=== PATIENT | female | born 1930 | race Caucasian/White ===

== ENCOUNTER 2016-08-27 16:20 | Observation (INO) | payer MEDICARE, BC, OTHER ==
[2016-08-27] MEDS ORDERED: ASPIRIN 81 MG CHEW PO STA (16:37)
--- NOTE | 2016-08-27 16:40 | ED ---
Chest Pain HPI - General Stated Complaint: Cardiac Time Seen by Provider: 08/27/16 16:30 - History of Present Illness Initial Comments: Patient complains of chest pain. She had some nausea but no vomiting. Her symptoms began approximately one and a half hours ago. They came on suddenly. Her symptoms gradually improved. At this time she is symptom-free. She has no belly or back pain. She has no lightheadedness or dizziness. She has no neck pain or stiffness. She has no pain or swelling in the arms or legs. She has no palpitations. The chest pain did not radiate anywhere. There are no exacerbating or relieving factors. She took nitroglycerin and she no longer has pain. - Related Data Home Medications Medication Instructions Recorded Confirmed Aspirin EC [Ecotrin Low Dose] 81 mg PO HS 08/27/16 08/27/16 Atenolol [Tenormin] 25 mg PO DAILY 08/27/16 08/27/16 Calcium Carbonate [Calcium] 600 mg PO DAILY 08/27/16 08/27/16 Diazepam [Valium] 5 mg PO TID PRN 08/27/16 08/27/16 Doxazosin [Cardura] 2 mg PO DAILY 08/27/16 08/27/16 Multivitamins, Thera [Multivitamin] 1 tab PO DAILY 08/27/16 08/27/16 Pravastatin Sodium [Pravachol] 40 mg PO HS 08/27/16 08/27/16 Allergies Allergy/AdvReac Type Severity Reaction Status Date / Time No Known Allergies Allergy Verified 08/27/16 17:21 Review of Systems ROS Statement: Those systems with pertinent positive or pertinent negative responses have been documented in the HPI. ROS Other: All systems not noted in ROS Statement are negative. General Exam General appearance: alert, in no apparent distress Head exam: Present: atraumatic, normocephalic, normal inspection Eye exam: Present: normal appearance, PERRL, EOMI. Absent: scleral icterus, conjunctival injection, periorbital swelling ENT exam: Present: normal exam, mucous membranes moist Neck exam: Present: normal inspection. Absent: tenderness, meningismus, lymphadenopathy Respiratory exam: Present: normal lung sounds bilaterally. Absent: respiratory distress, wheezes, rales, rhonchi, stridor Cardiovascular Exam: Present: regular rate, normal rhythm, normal heart sounds. Absent: systolic murmur, diastolic murmur, rubs, gallop, clicks GI/Abdominal exam: Present: soft, normal bowel sounds. Absent: distended, tenderness, guarding, rebound, rigid Extremities exam: Present: normal inspection, full ROM, normal capillary refill. Absent: tenderness, pedal edema, joint swelling, calf tenderness Back exam: Present: normal inspection Neurological exam: Present: alert, oriented X3, CN II-XII intact Psychiatric exam: Present: normal affect, normal mood Skin exam: Present: warm, dry, intact, normal color. Absent: rash Course Vital Signs 08/27/16 08/27/16 16:33 18:15 Temperature 98.3 F Pulse Rate 63 57 L Respiratory 18 18 Rate Blood Pressure 192/83 163/77 O2 Sat by Pulse 95 97 Oximetry Chest Pain MDM - MDM Patient complains of chest pain. Initial EKG is normal. Troponin is negative. Patient will be admitted to the hospital. Disposition Clinical Impression: Chest pain Disposition: ADMITTED IP TO THIS HOSP Condition: Fair Time of Disposition: 18:32
[2016-08-27 16:53] LABS: Basophils % (A) 0 %; CH 29.1; CHCM 32.2; Eosinophils # (A) 0.2 k/uL (0-0.7); Eosinophils % (A) 2 %; HDW 2.18; HGB 13.7 gm/dL (11.4-16.0); Luc # (Auto) 0.12; Luc % (Auto) 1; Lymphocytes # (A) 1.6 k/uL (1.0-4.8); Lymphocytes % (A) 19 %; MCH 28.9 pg (25.0-35.0); MCHC 31.9 g/dL (31.0-37.0); MCV 90.8 fL (80.0-100.0); Mean Platelet Volume 7.4; Monocytes # (A) 0.4 k/uL (0-1.0); Monocytes % (A) 4 %; Neutrophils # (A) 6.2 k/uL (1.3-7.7); Neutrophils % (A) 74 %; RBC 4.73 m/uL (3.80-5.40); WBC 8.4 k/uL (3.8-10.6); WBC (Perox) 8.77
[2016-08-27 17:06] LABS: ALT 37 U/L (9-52); AST 21 U/L (14-36); Alkaline Phosphatase 55 U/L (38-126); Anion Gap 9 mmol/L; Blood Urea Nitrogen 10 mg/dL (7-17); Calcium 9.4 mg/dL (8.4-10.2); Carbon Dioxide 27 mmol/L (22-30); Chloride 102 mmol/L (98-107); Glucose 92 mg/dL (74-99); Magnesium 1.9 mg/dL (1.6-2.3); Non-African American GFR(MDRD) 59 (>60 ml/min/1.73 sqM); Potassium 4.3 mmol/L (3.5-5.1); Sodium 138 mmol/L (137-145); Total Bilirubin 0.8 mg/dL (0.2-1.3); Total Protein 6.5 g/dL (6.3-8.2)
[2016-08-27 17:10] LABS: INR 1.1 (<1.1); Partial Thromboplastin Time 23.6 sec (22.0-30.0); Prothrombin Time 10.8 sec (9.0-12.0)
--- NOTE | 2016-08-27 18:24 | XR ---
EXAMINATION TYPE: XR chest 2V DATE OF EXAM: 08/27/2016 5:51 PM COMPARISON: NONE HISTORY: Pain and cough TECHNIQUE: Frontal and two lateral views of the chest are obtained. FINDINGS: EKG leads are noted. There is no focal air space opacity, pleural effusion, or pneumothora x seen. The cardiac silhouette size is within normal limits. The osseous structures are intact. IMPRESSION: No acute cardiopulmonary process.
[2016-08-27] MEDS ORDERED: ONDANSETRON 4 MG/2 ML VIAL IVP PRN (18:32)
[2016-08-27] MEDS ORDERED: NALOXONE 0.4 MG/ML 1 ML VIAL IV PRN (18:32)
[2016-08-27] MEDS ORDERED: MORPHINE SULFATE 4 MG/ML SYRINGE IV PRN (18:32)
[2016-08-27 18:52] LABS: Amorphous Sediment,Urine Occasional /hpf; Appearance,Urine Cloudy (Clear); Bilirubin,Urine Negative (Negative); Glucose,Urine (UA) Negative (Negative); Ketones,Urine 1+ (Negative); Leukocyte Esterase,Urine Negative (Negative); Mucus,Urine Rare /hpf; Nitrite,Urine Negative (Negative); Particle Count 4633; Protein,Urine Trace (Negative); RBC,Urine 1 /hpf (0-5); Specific Gravity,Urine 1.012 (1.001-1.035); Squamous Epithelial Cell,Urine 7 /hpf (0-4); UA Billing (MACRO vs. MICRO) MICRO; Urobilinogen,Urine <2.0 mg/dL (<2.0); WBC,Urine 12 /hpf (0-5)
[2016-08-27] MEDS ORDERED: PRAVASTATIN SODIUM 40 MG TAB PO SCH (21:00)
[2016-08-27 22:34] VITALS: BMI 27.2
[2016-08-27] MEDS: FAMOTIDINE 20 MG TAB PO SCH (22:46)
[2016-08-27 23:01] VITALS: RESP 16
[2016-08-28] MEDS ORDERED: ATENOLOL 25 MG TAB PO STA (03:59)
[2016-08-28] MEDS ORDERED: CALCIUM CARBONATE 500 MG CHEWABLE PO SCH (09:00)
[2016-08-28] MEDS ORDERED: ATENOLOL 25 MG TAB PO SCH (09:00)
[2016-08-28] MEDS ORDERED: REGADENOSON 0.4 MG/5 ML SYRINGE IV ONE (09:55)
[2016-08-28] MEDS ORDERED: AMINOPHYLLINE 500 MG/20 ML VIAL IV PRN (09:55)
--- NOTE | 2016-08-28 09:55 | P.CRDCN ---
History of Present Illness Consult date: 08/28/16 Chief complaint: Chest pain History of present illness: This is a pleasant 85-year-old female patient who is in great shape for her age with a past medical history significant for hypertension and significant history of smoking presented to the emergency room complaining of chest discomfort. The patient was in her usual state of health when she was doing shopping with her daughter yesterday and came back home and experienced 2 episodes of chest discomfort at home. The second episodes requires 2 nitroglycerin sublingual. The EKG showed sinus rhythm with RBBB. The cardiac enzymes came in to be unremarkable. I am going to schedule the patient will undergo a stress test to rule out any severe underlying CAD. Past Medical History Past Medical History: Coronary Artery Disease (CAD), COPD, Hypertension Additional Past Medical History / Comment(s): restless leg syndrome History of Any Multi-Drug Resistant Organisms: None Reported Past Surgical History: Cholecystectomy, Hysterectomy Past Anesthesia/Blood Transfusion Reactions: No Reported Reaction Past Psychological History: No Psychological Hx Reported Smoking Status: Current every day smoker Past Alcohol Use History: None Reported Past Drug Use History: None Reported - Past Family History Mother History Unknown: Yes Father Family Medical History: COPD, Hyperlipidemia, Hypertension, Myocardial Infarction ([place]) Medications and Allergies Home Medications Medication Instructions Recorded Confirmed Type Aspirin EC [Ecotrin Low Dose] 81 mg PO HS 08/27/16 08/27/16 History Atenolol [Tenormin] 25 mg PO DAILY 08/27/16 08/27/16 History Calcium Carbonate [Calcium] 600 mg PO DAILY 08/27/16 08/27/16 History Diazepam [Valium] 5 mg PO TID PRN 08/27/16 08/27/16 History Doxazosin [Cardura] 2 mg PO DAILY 08/27/16 08/27/16 History Multivitamins, Thera [Multivitamin] 1 tab PO DAILY 08/27/16 08/27/16 History Pravastatin Sodium [Pravachol] 40 mg PO HS 08/27/16 08/27/16 History Allergies Allergy/AdvReac Type Severity Reaction Status Date / Time No Known Allergies Allergy Verified 08/27/16 22:23 Physical Exam Vitals: Vital Signs Temp Pulse Pulse Resp BP BP BP 08/28/16 07:52 98.3 F 57 L 16 125/61 08/28/16 03:47 98.1 F 66 16 195/84 08/28/16 03:43 16 08/27/16 23:25 16 08/27/16 22:30 98.1 F 64 16 186/92 08/27/16 21:00 60 20 161/67 08/27/16 20:00 98 F 64 18 164/66 08/27/16 19:00 97.7 F 56 L 20 149/67 Pulse Ox 08/28/16 07:52 94 L 08/28/16 03:47 91 L 08/28/16 03:43 08/27/16 23:25 08/27/16 22:30 91 L 08/27/16 21:00 97 08/27/16 20:00 98 08/27/16 19:00 97 Intake and Output 08/27/16 08/28/16 08/28/16 22:59 06:59 14:59 Other: # Voids 1 Weight 74.3 kg - Constitutional General appearance: no acute distress - Respiratory Respiratory: bilateral: CTA - Cardiovascular Rhythm: regular Heart sounds: normal: S1, S2 Results 08/27/16 16:40 08/27/16 16:40 Cardiac Enzymes 08/27/16 08/28/16 Range/Units 22:17 03:51 Troponin I <0.012 <0.012 (0.000-0.034) ng/mL Current Medications Generic Name Dose Route Start Last Admin Trade Name Freq PRN Reason Stop Dose Admin Aspirin 81 mg 08/28/16 21:00 Aspirin PO HS [facility] Atenolol 25 mg 08/28/16 09:00 Tenormin PO DAILY [facility] Calcium Carbonate/Glycine 500 mg 08/28/16 09:00 Tums PO DAILY [facility] Famotidine 20 mg 08/27/16 21:00 08/27/16 22:46 Pepcid PO 20 mg BID [facility] Administration Morphine Sulfate 4 mg 08/27/16 18:32 Morphine Sulfate (Inj) IV Q4HR PRN Severe Pain Naloxone HCl 0.2 mg 08/27/16 18:32 Narcan IV Q2M PRN Opioid Reversal Ondansetron HCl 4 mg 08/27/16 18:32 Zofran IVP Q8HR PRN Nausea And Vomiting Pravastatin Sodium 40 mg 08/27/16 21:00 08/27/16 22:46 Pravachol PO 40 mg HS JANET Administration Intake and Output 08/27/16 08/28/16 08/28/16 22:59 06:59 14:59 Other: # Voids 1 Weight 74.3 kg Assessment and Plan Plan: Assessment # 2 episodes of chest discomfort # significant history of smoking Plan #1 proceeding with a stress test
[2016-08-28 11:56] VITALS: TEMP 98.2
[2016-08-28] MEDS: FAMOTIDINE 20 MG TAB PO SCH (13:22)
--- NOTE | 2016-08-28 13:43 | EST ---
DATE OF SERVICE: 08/28/2016 AGE: 85Y SEX: F HT: 65" WT: 163 lbs. Protocol Doroteo: Other: Lexiscan Cardiolite Stage: Dur. of Exercise: *Heart Rate Blood Pressure *Rest: 49 Rest: 184/65 * *Max. Achieved: 66 Maximum BP: 184/65 85% PMHR: 114 100% PMHR: 134 *METS: INDICATIONS: Chest pain. MEDICATIONS: CLINICAL INFORMATION: Chest pain, shortness of breath, history of smoking 1 pack of cigarettes a day for 70 years. Resting ECG shows sinus rhythm, rate of 49 beats per minute with frequent PACs and complete right bundle branch block with secondary ST-T wave changes. Utilizing a standard Lexiscan protocol, Lexiscan was given IV push followed by serial EKGs without any chest pain or pressure or ST segment deviations indicative of ischemia in any of the monitoring 12 leads. The patient tolerated the procedure very well. IMPRESSION: 1. Baseline EKG shows complete right bundle branch block with ST-T wave changes. 2. Negative Lexiscan Cardiolite study. 3. Nuclear scintigrams to follow from radiology department.
--- NOTE | 2016-08-28 15:17 | NM ---
EXAMINATION TYPE: NM stress lexiscan cardiolite DATE OF EXAM: 08/28/2016 3:09 PM COMPARISON: NONE HISTORY: Chest pain TECHNIQUE: After the intravenous administration of 10.89 mCi Tc 99m Sestamibi - Cardiolite resting S PECT images acquired 42 minutes post injection. The patient received 0.4mg Lexiscan, 27.5 mCi Tc 99m Sestamibi - Stress images obtained 110 minutes p ost injection FINDINGS: Review of stress and rest SPECT images demonstrates small area of fixed perfusion involving the cardi ac apex. No stress-induced ischemia identified. Gated analysis shows normal wall motion with an estim ated left ventricular ejection fraction of 68 %. IMPRESSION: No scintigraphic evidence for reversible ischemia.
[2016-08-28 15:58] VITALS: BP 170/65; PULSE 48
--- NOTE | 2016-08-28 18:10 | HP ---
DATE OF ADMISSION: 08/27/2016 Chief complaint of chest pain. HISTORY OF PRESENT ILLNESS: Ms. Rubi is an 85-year-old female with a known history of hypertension and nicotine addiction, active smoking, came to the hospital with complaints of chest discomfort mainly in the mid sternal region, no associated nausea or vomiting. Patient felt slightly short of breath. No headache or dizziness, lightheadedness. Patient was at home when she had this chest pain. Apparently the patient was in her usual state of health and when she was doing shopping with her daughter yesterday and came back home and experienced two episodes of chest discomfort as above. For the second episode of chest pain, she has to take nitroglycerin which relieved her symptoms and she came to the hospital. By the time she came to the ER patient is chest pain free. Currently denied any complaints of chest pain now. Cardiology has seen the patient and her EKG showed sinus rhythm with right bundle branch block and cardiac enzymes have been negative x3 and cardiology is planning for stress test today. Otherwise, patient denied recent illnesses or sick contacts at home. No recent travel. REVIEW OF SYSTEMS: CONSTITUTIONAL: No fever. No chills. No weakness, malaise. RESPIRATORY: No cough. No sputum production. CARDIOVASCULAR: No chest pain or short of breath. ABDOMEN: No nausea, vomiting or abdominal pain. GENITOURINARY: Negative. ENDOCRINE: Negative. PSYCHIATRIC: Negative. SKIN: Negative. All other 14 point review of systems negative except as above. PAST MEDICAL HISTORY: Hypertension, nicotine addiction and COPD, restless leg syndrome. PAST SURGICAL HISTORY: Cholecystectomy, hysterectomy. No psychosocial history. SOCIAL HISTORY: Patient is currently an everyday smoker; smokes about a pack a day. Denied any alcohol use. Denied any drugs or IVDU. FAMILY HISTORY: Father has COPD, hypertension, hyperlipidemia, and myocardial infarction. Home medication include: 1. Aspirin. 2. Atenolol. 3. Calcium. 4. Valium. 5. Doxazosin. 6. Multivitamins. 7. Pravastatin. No known drug allergies. PHYSICAL EXAMINATION: An 85-year-old female, lying in the bed. Awake, alert, oriented, x3. Appears to be in no apparent distress. VITALS: Blood pressure is 164/66, pulse is 64, respiration 18, temperature afebrile, pulse ox 98% on 2 L nasal cannula. HEENT: Atraumatic, normocephalic. Neck is supple. No JVD. CVS: S1, S2 heard. No murmurs, no gallop, no rub. LUNGS: Bilateral air entry is present. No wheezing. No crackles. Nonlabored breathing. ABDOMEN: Soft, nontender. Bowel sounds are present. CENTRAL NERVOUS SYSTEM: Awake, alert and oriented x3. No focal neurologic deficits. Cranial nerves grossly intact. EXTREMITIES: No edema. Pulses palpable bilaterally. No clubbing or cyanosis. PSYCHIATRIC: Cooperative. Nonsuicidal. LABORATORY DATA: WBC 8.4, hemoglobin 13.7, platelets 140, INR 1.1. Sodium 138, potassium 4.8, chloride 102, bicarb is 27. BUN 10, creatinine 0.91. Liver enzymes within normal limits. Troponin x 3 negative. NT-proBNP is 283. Lipase 96. UA is cloudy. 12 WBC's and 7 squamous epithelial cells with hyaline casts and urine mucous. CHEST X-RAY: No acute cardiopulmonary process. EKG showed sinus rhythm with right bundle branch block. IMPRESSION: 1. Atypical chest pain/( ) shortness of breath and chest pain rule out acute coronary syndrome. 2. Nicotine addiction. 3. Hypertension. 4. Chronic obstructive pulmonary disease, stable. 5. Restless leg syndrome. 6. History of coronary artery disease, never had any cath in the past. 7. Deep venous thrombosis prophylaxis. DISCUSSION AND PLAN: An 85 -year-old female admitted to the hospital with chest pain, currently ( ) serial EKGs and troponins are negative. Continue the current management and blood pressure medications and Cardiology recommending Lexiscan stress test to be done today. Otherwise we will continue the current management and further recommendations based on the clinical course.
[2016-08-28] MEDS ORDERED: ASPIRIN 81 MG CHEW PO SCH (21:00)
[2016-08-29] MEDS ORDERED: FAMOTIDINE 20 MG TAB PO SCH (09:00)
--- NOTE | 2016-08-29 13:42 | DS ---
DATE OF ADMISSION: 08/27/2016 DATE OF DISCHARGE: 08/28/2016 Cardiology consultation and Lexiscan stress test. DISCHARGE DIAGNOSES: 1. Atypical chest pain, ruled out acute coronary syndrome. Lexiscan stress test negative. 2. Hypertension, uncontrolled, controlled at this time. 3. Restless leg syndrome. 4. Chronic obstructive pulmonary disease. 5. Nicotine addiction. HOSPITAL COURSE: Ms. Rubi is an 85-year-old female with known history of hypertension and nicotine addiction admitted to the hospital with chest pain and workup included serial EKGs and troponins are negative. The patient underwent Lexiscan stress test showed no scintigraphic evidence of reversible ischemia. Otherwise currently patient is chest pain free. Serial EKGs and troponins are negative. Blood pressure is well controlled at this time and the patient will be continued on current management and follow with the primary care physician in 1 to 3 days. DISCHARGE PHYSICAL EXAMINATION; An 85-year-old female, lying in bed comfortably, awake, alert, oriented x3. Appears to be in no apparent distress VITALS: Blood pressure is 140/52, pulse is 54, respirations 16, temperature afebrile, pulse ox 95% on room air. HEENT: Atraumatic, normocephalic. Neck is supple. No JVD. CVS EXAM: S1, S2 heard. LUNGS: Bilateral air entry is present. No wheeze or crackles. ABDOMEN: Soft, nontender. Bowel sounds are present. Laboratory data reviewed. Discharge medications include: 1. Aspirin 81 mg p.o. at bedtime. 2. Atenolol 25 mg p.o. daily. 3. Calcium carbonate 600 mg p.o. daily. 4. Diazepam 5 mg p.o. t.i.d. p.r.n. 5. Doxazosin 2 mg p.o. daily. 6. Multivitamins 1 tablet p.o. daily. 7. Pravastatin 40 mg p.o. at bedtime. Patient will be discharged home and follow with Dr. Uriostegui as outpatient. Home with self-care and activity as tolerated and heart healthy diet.
== END 2016-08-28 17:15 | disposition home or self-care (01) ==
LOC: EC 16:20 → 3OBS 18:32
PROVIDERS: ADMIT Hospitalist; ATTEND Hospitalist
DX: R07.89 Other chest pain (principal); I10 Essential (primary) hypertension; G25.81 Restless legs syndrome; J44.9 Chronic obstructive pulmonary disease, unspecified; F17.200 Nicotine dependence, unspecified, uncomplicated; I45.10 Unspecified right bundle-branch block; I25.10 Atherosclerotic heart disease of native coronary artery without angina pectoris; Z79.82 Long term (current) use of aspirin; Z79.899 Other long term (current) drug therapy; Z82.49 Family history of ischemic heart disease and other diseases of the circulatory system; Z82.5 Family history of asthma and other chronic lower respiratory diseases
CPT/HCPCS: 99285 ×2; 36415; 93005; 93017; 83880; 80053; 83690; 83735; 84484 ×2; 85025; 85610; 85730; 81001; 71020; 78452; G0378 ×2; A9500; J2785

== ENCOUNTER 2016-11-17 19:26 | Inpatient (IN) | payer BC, MEDICARE, OTHER ==
[2016-11-17 22:29] LABS: Glucose,Whole Blood 115 mg/dL (75-99)
[2016-11-18] MEDS: DIAZEPAM 5 MG TAB PO PRN ×3 (02:17→20:41)
[2016-11-18] MEDS: IBUPROFEN 400 MG TAB PO PRN (05:38)
[2016-11-18 07:23] LABS: Basophils % (A) 0 %; CH 28.7; Eosinophils # (A) 0.1 k/uL (0-0.7); Eosinophils % (A) 1 %; HGB 12.8 gm/dL (11.4-16.0); Luc # (Auto) 0.16; Luc % (Auto) 2; Lymphocytes # (A) 1.1 k/uL (1.0-4.8); Lymphocytes % (A) 13 %; MCH 30.2 pg (25.0-35.0); MCHC 34.6 g/dL (31.0-37.0); MCV 87.3 fL (80.0-100.0); Mean Platelet Volume 7.3; Monocytes # (A) 0.6 k/uL (0-1.0); Monocytes % (A) 6 %; Neutrophils # (A) 6.7 k/uL (1.3-7.7); Neutrophils % (A) 77 %; RBC 4.24 m/uL (3.80-5.40); RDW 13.3 % (11.5-15.5); WBC 8.7 k/uL (3.8-10.6)
[2016-11-18 07:42] LABS: ALT 25 U/L (9-52); AST 23 U/L (14-36); Alkaline Phosphatase 47 U/L (38-126); Anion Gap 6 mmol/L; Blood Urea Nitrogen 11 mg/dL (7-17); Calcium 8.9 mg/dL (8.4-10.2); Carbon Dioxide 27 mmol/L (22-30); Chloride 95 mmol/L (98-107); Glucose 85 mg/dL (74-99); Non-African American GFR(MDRD) >60 (>60 ml/min/1.73 sqM); Potassium 4.1 mmol/L (3.5-5.1); Sodium 128 mmol/L (137-145); Total Bilirubin 0.7 mg/dL (0.2-1.3); Total Protein 5.7 g/dL (6.3-8.2)
[2016-11-18] MEDS ORDERED: SYMBICORT 160-4.5 MCG INHALER INHALATION SCH (09:00)
[2016-11-18] MEDS ORDERED: ATENOLOL 25 MG TAB PO SCH (09:00)
[2016-11-18] MEDS: SODIUM CHLORIDE 0.9% 1,000 ML IV SCH (10:00)
[2016-11-18] MEDS: DOXAZOSIN 1 MG TAB PO SCH (10:01)
[2016-11-18] MEDS: CALCIUM CARBONATE 500 MG CHEWABLE PO SCH (10:01)
[2016-11-18] MEDS: MULTIVITAMINS, THERA 1 EACH TAB PO SCH (10:01)
[2016-11-18] MEDS: HYDROCHLOROTHIAZIDE 12.5 MG CAP PO SCH (10:02)
[2016-11-18] MEDS: LOSARTAN 50 MG TAB PO SCH (10:02)
--- NOTE | 2016-11-18 11:34 | ECHOF ---
Referral Reason:syncope MEASUREMENTS -------- HEIGHT: 165.1 cm WEIGHT: 80.3 kg BP: 129/57 RVIDd: 3.0 cm (< 3.3) IVSd: 1.3 cm (0.6 - 1.1) LVIDd: 4.0 cm (3.9 - 5.3) LVPWd: 1.3 cm (0.6 - 1.1) IVSs: 1.8 cm LVIDs: 2.9 cm LVPWs: 1.8 cm LA Diam: 3.0 cm (2.7 - 3.8) LAESV Index (A-L): 29.76 ml/m Ao Diam: 2.8 cm (2.0 - 3.7) AV Cusp: 1.8 cm (1.5 - 2.6) LA Diam: 2.9 cm (2.7 - 3.8) MV EXCURSION: 10.759 mm (> 18.000) MV EF SLOPE: 45 mm/s (70 - 150) EPSS: 0.5 cm MV E Sulaiman: 0.87 m/s MV DecT: 235 ms MV A Sulaiman: 1.15 m/s MV E/A Ratio: 0.76 RAP: 5.00 mmHg RVSP: 19.78 mmHg FINDINGS -------- Sinus rhythm with extra systolic beats. This was a technically adequate study. There is mild concentric left ventricular hypertrophy. Overall left ventricular systolic function is normal with, an EF between 55 - 60 %. The right ventricle is normal in size. LA is midly dilated 29-33ml/m2. The right atrium is normal in size. There is mild aortic valve sclerosis. The mitral valve leaflets are mildly thickened. Mild mitral annular calcification present. There is trace mitral regurgitation. Trace tricuspid regurgitation present. Pulmonic valve appears structurally normal. The aortic root, ascending aorta and aortic arch are normal. Normal inferior vena cava with normal inspiratory collapse consistent with estimated right atrial pressure of 5 mmHg. Echo free space may represent effusion or a pericardial fat pad. CONCLUSIONS -------- 1. Sinus rhythm with extra systolic beats. 2. Mild mitral annular calcification present. 3. There is trace mitral regurgitation. 4. Trace tricuspid regurgitation present. 5. Pulmonic valve appears structurally normal. 6. The aortic root, ascending aorta and aortic arch are normal. 7. Normal inferior vena cava with normal inspiratory collapse consistent with estimated right atrial pressure of 5 mmHg. 8. Echo free space may represent effusion or a pericardial fat pad. 9. This was a technically adequate study. 10. There is mild concentric left ventricular hypertrophy. 11. Overall left ventricular systolic function is normal with, an EF between 55 - 60 %. 12. The right ventricle is normal in size. 13. LA is midly dilated 29-33ml/m2. 14. The right atrium is normal in size. 15. There is mild aortic valve sclerosis. 16. The mitral valve leaflets are mildly thickened. CANE PILER: Janet Munson RDCS
--- NOTE | 2016-11-18 16:22 | P.HPIM ---
History of Present Illness H&P Date: 11/18/16 (DC summary) This is a 86-year-old female apparently was had a prior episode of syncope in August underwent workup including a computed tomography scan and evaluation by our cardiology team at that time comes into the hospital as a transfer from [facility] receiving emergency room. Patient apparently was at the [facility] has had an episode where patient started to feel hot thereafter got dizzy and lost consciousness for a short period of time. Patient thereafter woke up and was able to recall most of the incident prior to the episode denies having any triggers. This is a second episode. Patient apparently was evaluated in the emergency room was noted to have some pain on movement of her ankle was noted to have a trimalleolar fracture which was reduced in the emergency room. Patient was then transferred to our facility. EKG did not reveal any rhythm abnormalities. Patient underwent an echocardiogram which showed no significant valvular stenosis. Telemetry for about 24 hours did not reveal any abnormalities. Patient also did not show any signs of seizures. Really there was an incident where in the ambulance there was some frothing around her mouth however there is no definite of seizure-like activity. A neurologist was consulted on initial concern for seizures. However patient was seizure-free for about 24 hours. Another evaluation patient states she does not have headaches, blurry vision, nausea, vomiting. States the pain in her lower extremity. States she does not recall a history of stroke or seizures in the past. Review of Systems All systems: negative (Noted in HPI) Past Medical History Past Medical History: COPD, Hypertension Additional Past Medical History / Comment(s): restless leg syndrome History of Any Multi-Drug Resistant Organisms: None Reported Past Surgical History: Cholecystectomy, Hysterectomy Additional Past Surgical History / Comment(s): breast bx benign Past Anesthesia/Blood Transfusion Reactions: No Reported Reaction Past Psychological History: No Psychological Hx Reported Smoking Status: Current every day smoker Past Alcohol Use History: None Reported Past Drug Use History: None Reported - Past Family History Mother History Unknown: Yes Father Family Medical History: COPD, Hyperlipidemia, Hypertension, Myocardial Infarction ([place]) Medications and Allergies Home Medications Medication Instructions Recorded Confirmed Type Aspirin EC [Ecotrin Low Dose] 81 mg PO HS 08/27/16 11/18/16 History Atenolol [Tenormin] 25 mg PO DAILY 08/27/16 11/18/16 History Calcium Carbonate [Calcium] 600 mg PO DAILY 08/27/16 11/18/16 History Diazepam [Valium] 5 mg PO TID PRN 08/27/16 11/18/16 History Multivitamins, Thera [Multivitamin 1 tab PO DAILY 08/27/16 11/18/16 History (formulary)] Pravastatin Sodium [Pravachol] 40 mg PO HS 08/27/16 11/18/16 History Budesonide/Formoterol Fumarate 2 puff INHALATION RT-BID 11/17/16 11/18/16 History [Symbicort 160-4.5 Mcg Inhaler] Hydrochlorothiazide 12.5 mg PO DAILY 11/17/16 11/18/16 History Ibuprofen [Motrin] 400 mg PO Q6HR PRN 11/17/16 11/18/16 History Losartan [Cozaar] 50 mg PO DAILY 11/17/16 11/18/16 History Doxazosin [Cardura] 2 mg PO DAILY 11/18/16 11/18/16 History Allergies Allergy/AdvReac Type Severity Reaction Status Date / Time No Known Allergies Allergy Verified 11/18/16 08:47 Physical Exam Vitals: Vital Signs Temp Pulse Pulse Resp BP BP Pulse Ox 11/18/16 16:00 98.0 F 70 18 165/74 93 L 11/18/16 12:00 97.2 F L 63 16 121/56 93 L 11/18/16 08:00 98.7 F 67 18 134/61 94 L 11/18/16 05:16 98.3 F 64 16 129/57 96 11/18/16 03:49 62 18 11/18/16 00:00 56 L 18 11/17/16 22:30 75 18 11/17/16 22:05 98.2 F 63 16 147/65 96 Intake and Output 11/18/16 11/18/16 11/18/16 06:59 14:59 22:59 Intake Total 120 Balance 120 Intake: Oral 120 Other: Voiding Method Bedpan # Voids 2 Physical exam Gen. appearance oriented 3 in no distress Neck is supple no JVD Lungs good air entry clear to auscultation no rhonchi or wheezing Heart S1-S2 heard regular rate and rhythm no murmurs appreciated Abdomen is soft nontender no organomegaly bowel sounds are intact Neurologically cranial nerves II-12 grossly intact no focal motor or sensory deficits noted orthostatics are negative. Casts is noted on the right ankle. Skin no abnormalities appreciated Results CBC & Chem 7: 11/18/16 06:54 11/18/16 06:54 Labs: Abnormal Lab Results - Last 24 Hours (Table) 11/17/16 11/18/16 Range/Units 22:27 06:54 Sodium 128 L (137-145) mmol/L Chloride 95 L (98-107) mmol/L POC Glucose (mg/dL) 115 H (75-99) mg/dL Total Protein 5.7 L (6.3-8.2) g/dL Albumin 3.2 L (3.5-5.0) g/dL Thrombosis Risk Factor Assmnt - Choose All That Apply Each Risk Factor Represents 3 Points: Age 75 years or older Thrombosis Risk Factor Assessment Total Risk Factor Score: 3 Thrombosis Risk Factor Assessment Level: Moderate Risk Assessment and Plan Plan: 86-year-old female that is admitted to the hospital after sustaining a syncopal episode #1 syncope likely vasovagal in nature #2 TRI bimalleolar fracture of the right ankle #3 hyponatremia that is likely a combination of hydrochlorothiazide use and fluid intake or graft #4 history of hypertension #5 urinary incontinence #6 dyslipidemia #7 COPD Plan We'll discontinue Cardura and hydrochlorothiazide. Records as it is discontinued with hyponatremia that is mild that is noted at this time. Patient will be discharged to follow-up on outpatient basis with a repeat sodium level. Patient is also recommended to follow-up with the neurologist for an outpatient workup. Patient has been without an episode in the last 24 hours patient is definitely not recommended to try till cleared by neurology team as underlying seizures is a concern as well. However as patient is episode free for 24 hours the episode is more concerning for a vasovagal etiology. There may be some underlying dehydration that could' ve exacerbated this as well. Patient will be discharged home to follow with cardiology and neurology.
--- NOTE | 2016-11-18 17:14 | CONS ---
DATE OF CONSULTATION: This is an 86-year-old lady who was transferred from [facility]. She went to [facility] and she was waiting in the lobby and her went to look out to see if her son-in-law was bringing the car and the next thing she felt ready was warm and a sensation of dizziness and neck thing she remembers is somebody trying to call 911, and people surrounding her. She did not have any chest pain. She did not have any sensation of nausea, or any queasy feeling in her stomach when this happened. This came on rather suddenly. She is not known to have any syncope in the past. Recent stress test and echo in August were unremarkable. This lady is a fairly active person and I see her in the office on a regular basis. She fell and fractured her ankle and went to [facility] and after putting a splint, she was transferred here. She has a history of hypertension, hyperlipidemia, and reasonably active person. PAST MEDICAL HISTORY: 1. Hypertension. 2. Hyperlipidemia. 3. Degenerative joint disease. Medications at home include: 1. Pravastatin 40 mg daily. 2. Cozaar 40 mg daily. 3. Atenolol 25 mg daily. 4. Aspirin 81 mg. 5. Calcium supplements. 6. She also takes Cardura 2 mg. ALLERGIES: None. REVIEW OF SYSTEMS: Unremarkable other than above-mentioned facts. On examination, blood pressure is 128/70, pulse rate is 60 per minute. HEENT: Unremarkable. Fundus was not examined by me. Neck is supple. There is no JVD. I do not hear a carotid bruit. Heart exam reveals S1, S2 with a very short systolic murmur. Lungs reveal bilateral decent air entry. ABDOMEN: Soft, nontender. Lower extremities reveal normal pulses. No edema. Central nervous system is grossly within normal limits. I did not do a detailed lower extremity examination, where she has a bandage on her ankle area. IMPRESSION: 1. Syncope, fall and fracture of right ankle. 2. Hypertension. 3. Hyperlipidemia. RECOMMENDATIONS: Etiology of syncope seems elusive. Possibility of this being cardiogenic should be considered. I am recommending that we monitor her, obtain echocardiogram, seek neurology input. However, there is no contraindication for any surgery to be performed for her ankle. I will obtain a carotid Doppler as well. I discussed my thoughts in detail with the patient. Thank you very much for the consult.
--- NOTE | 2016-11-18 17:23 | US ---
EXAMINATION TYPE: US carotid duplex BILAT DATE OF EXAM: 11/18/2016 5:05 PM COMPARISON: US on PACS CLINICAL HISTORY: syncope x 2 episodes. EXAM MEASUREMENTS: RIGHT: Peak Systolic Velocity (PSV) cm/sec ----- Right CCA: 75.3 ----- Right ICA: 265.3 ----- Right ECA: 176.7 ICA/CCA ratio: 3.5 RIGHT: End Diastole cm/sec ----- Right CCA: 13.4 ----- Right ICA: 57.3 ----- Right ECA: 0.0 LEFT: Peak Systolic Velocity (PSV) cm/sec ----- Left CCA: 92.8 ----- Left ICA: 110.9 ----- Left ECA: 61.7 ICA/CCA ratio: 1.2 LEFT: End Diastole cm/sec ----- Left CCA: 21.5 ----- Left ICA: 18.9 ----- Left ECA: 0.0 VERTEBRALS (direction of flow): Right Vertebral: Antegrade Left Vertebral: Antegrade IMPRESSION: Irregular wall plaque is noted at bilateral carotid bifurcation with abnormally elevated PSV in Right ICA bulb, proximal right ICA and proximal Right ECA. Greater than 70% diameter reduc tion right internal carotid system. Criteria for Assigning % of Stenosis / Diameter reduction (Estimation based on the indirect measurements of the internal carotid artery velocities (ICA PSV). 1. Normal (no stenosis)=ICA PSV < 125 cm/s: ratio < 2.0: ICA EDV<40 cm/s. 2. Less than 50% stenosis=ICA PSV < 125 cm/s: ratio < 2.0: ICA EDV<40 cm/s. 3. 50 to 69% stenosis=ICA PSV of 125 to 230 cm/s: ration 2.0 ? 4.0: ICA EDV 40-100 cm/s. 4. Greater than 70% stenosis to near occlusion= ICA PSV > 230 cm/s: ratio > 4.0: ICA EDV > 100 cm/s. 5. Near occlusion= ICA PSV velocities may be low or undetectable: variable ratio and ICA EDV. 6. Total occlusion=unable to detect flow.
[2016-11-18] MEDS ORDERED: ASPIRIN 81 MG CHEW PO SCH (21:00)
[2016-11-18] MEDS ORDERED: PRAVASTATIN SODIUM 40 MG TAB PO SCH (21:00)
[2016-11-19] MEDS ORDERED: SYMBICORT 160-4.5 MCG INHALER INHALATION STA (00:01)
[2016-11-19] MEDS: SYMBICORT 160-4.5 MCG INHALER INHALATION SCH ×2 (00:06→08:41)
[2016-11-19] MEDS: SODIUM CHLORIDE 0.9% 1,000 ML IV SCH ×2 (05:49→14:29)
[2016-11-19 08:08] VITALS: RESP 18
[2016-11-19] MEDS: DOXAZOSIN 1 MG TAB PO SCH ×2 (10:58→14:00)
[2016-11-19] MEDS: HYDROCHLOROTHIAZIDE 12.5 MG CAP PO SCH ×2 (10:58→14:00)
[2016-11-19] MEDS: LOSARTAN 50 MG TAB PO SCH (10:58)
[2016-11-19] MEDS: MULTIVITAMINS, THERA 1 EACH TAB PO SCH (10:58)
[2016-11-19] MEDS: CALCIUM CARBONATE 500 MG CHEWABLE PO SCH (10:58)
--- NOTE | 2016-11-19 11:44 | PN ---
Mrs. Rubi did not have any further episodes of bradycardia or syncope. It is unclear as to what may be the etiology for her syncope. Neurological work-up is in progress. I am recommending an event monitor prior to discharge and an Orthopedic Surgery evaluation. Cardiac-romano, other than a 2 week event monitor, I have no other specific suggestions and I will see her in the office after the event monitor. Physical exam revealed vital signs are stable, S1 and S2 heard normally. Short systolic murmur noted. Lungs are clear. Abdomen and lower extremity exam are unchanged. Rhythm strip reviewed suggests no evidence of any ectopy.
--- NOTE | 2016-11-19 11:45 | XR ---
EXAMINATION TYPE: XR ankle limited RT DATE OF EXAM: 11/19/2016 11:37 AM COMPARISON: NONE HISTORY: right trimalleolar fracture TECHNIQUE: Frontal, lateral images of the right ankle are obtained. COMPARISON: None. FINDINGS: Overlying cast material obscures fine bony detail. Trimalleolar fracture noted. Alignment i s grossly unremarkable. Ankle mortise instability suggested. IMPRESSION: Fractures.
[2016-11-19] MEDS: IBUPROFEN 400 MG TAB PO PRN (11:50)
--- NOTE | 2016-11-19 12:46 | CT ---
EXAMINATION TYPE: CT ankle RT wo con DATE OF EXAM: 11/19/2016 12:39 PM COMPARISON: NONE HISTORY: Patient fell and fractured right ankle CT DLP: 187.7 mGycm Automated exposure control for dose reduction was used. Technique: Axial images 3 mm thick sections. Reconstructed images in the coronal and sagittal plane. FINDINGS: There is a medial malleolar fracture which appears in near anatomic alignment and positioning. There is an spiral fracture of the distal metadiaphyseal fibula which may have some comminution. There is m ild diastases of this fracture fragment. Ankle mortise is intact. A posterior tibial fracture is evid ent on the axial images. This has near anatomic alignment. There is a subtle step-off on the posterio r articular surface though. IMPRESSION: 1. TRIMALLEOLAR FRACTURE. 2. STEP-OFF OF THE POSTERIOR TIBIAL FRACTURE. 3. MEDIAL MALLEOLAR FRACTURE IS IN NEAR-ANATOMIC ALIGNMENT AND POSITION. 4. SPIRAL FRACTURE METADIAPHYSEAL FIBULA. SOME COMMINUTED FRACTURE WITHIN THE FIBULA IS PRESENT.
[2016-11-19] MEDS: DIAZEPAM 5 MG TAB PO PRN (14:29)
--- NOTE | 2016-11-19 14:48 | P.DS ---
Providers Date of admission: 11/19/16 13:48 Attending physician: Alan Alaniz MD Consults: 11/17/16 22:58 Consult Physician Routine Consulting Provider: [facility] Consult Reason/Comments: syncope Do you want consulting provider notified?: Yes, Notify in am 11/17/16 22:59 Consult Physician Routine Consulting Provider: Evie Grover Consult Reason/Comments: syncope Do you want consulting provider notified?: Yes 11/19/16 10:46 Consult Physician Routine Consulting Provider: Rich Valle Consult Reason/Comments: R fractured ankle Do you want consulting provider notified?: Yes Primary care physician: [facility] Course: This is a 86-year-old female apparently was had a prior episode of syncope in August underwent workup including a computed tomography scan and evaluation by our cardiology team at that time comes into the hospital as a transfer from [place] receiving emergency room. Patient apparently [facility] has had an episode where patient started to feel hot thereafter got dizzy and lost consciousness for a short period of time. Patient thereafter woke up and was able to recall most of the incident prior to the episode denies having any triggers. This is a second episode. Patient apparently was evaluated in the emergency room was noted to have some pain on movement of her ankle was noted to have a trimalleolar fracture which was reduced in the emergency room. Patient was then transferred to our facility. EKG did not reveal any rhythm abnormalities. Patient underwent an echocardiogram which showed no significant valvular stenosis. Telemetry for about 24 hours did not reveal any abnormalities. Patient also did not show any signs of seizures. Really there was an incident where in the ambulance there was some frothing around her mouth however there is no definite of seizure-like activity. A neurologist was consulted on initial concern for seizures. However patient was seizure-free for about 24 hours. Another evaluation patient states she does not have headaches, blurry vision, nausea, vomiting. States the pain in her lower extremity. States she does not recall a history of stroke or seizures in the past. Physical exam Gen. appearance oriented 3 in no distress Neck is supple no JVD Lungs good air entry clear to auscultation no rhonchi or wheezing Heart S1-S2 heard regular rate and rhythm no murmurs appreciated Abdomen is soft nontender no organomegaly bowel sounds are intact Neurologically cranial nerves II-12 grossly intact no focal motor or sensory deficits noted orthostatics are negative. Casts is noted on the right ankle. Skin no abnormalities appreciated Plan: 86-year-old female that is admitted to the hospital after sustaining a syncopal episode #1 syncope likely vasovagal in nature #2 TRI bimalleolar fracture of the right ankle #3 hyponatremia that is likely a combination of hydrochlorothiazide use and fluid intake or graft #4 history of hypertension #5 urinary incontinence #6 dyslipidemia #7 COPD We'll discontinue Cardura and hydrochlorothiazide. Patient was evaluated by orthopedics. A computed tomography scan of the ankle was done which showed appropriate alignment. We'll await recommendation regards to restrictions. Patient will needa event monitor on outpatient basis further evaluation of syncope. Patient be discharged with home care. And appropriate equipment Plan - Discharge Summary New Discharge Prescriptions: Losartan [Cozaar] 100 mg PO DAILY #30 tab Discharge Medication List Aspirin EC [Ecotrin Low Dose] 81 mg PO HS 08/27/16 [History] Atenolol [Tenormin] 25 mg PO DAILY 08/27/16 [History] Calcium Carbonate [Calcium] 600 mg PO DAILY 08/27/16 [History] Diazepam [Valium] 5 mg PO TID PRN 08/27/16 [History] Multivitamins, Thera [Multivitamin (formulary)] 1 tab PO DAILY 08/27/16 [History ] Pravastatin Sodium [Pravachol] 40 mg PO HS 08/27/16 [History] Budesonide/Formoterol Fumarate [Symbicort 160-4.5 Mcg Inhaler] 2 puff INHALATION RT-BID 11/17/16 [History] Ibuprofen [Motrin] 400 mg PO Q6HR PRN 11/17/16 [History] Losartan [Cozaar] 100 mg PO DAILY #30 tab 11/18/16 [Rx] Follow up Appointment(s)/Referral(s): Brayden Roper MD [STAFF PHYSICIAN] - 1 Week [facility], [NON-STAFF] - 1 Week Evie Grover MD [STAFF PHYSICIAN] - 1 Week Ambulatory/Diagnostic Orders: Comprehensive Metabolic Panel [LAB.AMB] Time Frame: 1 Week, Location: Determined By Patient Activity/Diet/Wound Care/Special Instructions: Event monitor will be mail to your house. Wear monitor for two weeks No driving Follow up with neurology
[2016-11-19 15:00] LABS: ALT 24 U/L (9-52); AST 18 U/L (14-36); Alkaline Phosphatase 39 U/L (38-126); Anion Gap 6 mmol/L; Blood Urea Nitrogen 11 mg/dL (7-17); Calcium 8.4 mg/dL (8.4-10.2); Carbon Dioxide 27 mmol/L (22-30); Chloride 98 mmol/L (98-107); Glucose 100 mg/dL (74-99); Non-African American GFR(MDRD) 59 (>60 ml/min/1.73 sqM); Potassium 4.3 mmol/L (3.5-5.1); Sodium 131 mmol/L (137-145); Total Bilirubin 0.6 mg/dL (0.2-1.3); Total Protein 5.1 g/dL (6.3-8.2)
[2016-11-19 16:32] VITALS: BP 153/67; PULSE 62; TEMP 98.6
== END 2016-11-19 18:15 | disposition home health service (06) | DRG 312 ==
LOC: 3OBS 22:12 → OBSVTOIN 11-19 13:48
PROVIDERS: ADMIT Internal Medicine; ATTEND Internal Medicine
DX: R55 Syncope and collapse (principal); E87.1 Hypo-osmolality and hyponatremia; E86.0 Dehydration; J44.9 Chronic obstructive pulmonary disease, unspecified; E78.5 Hyperlipidemia, unspecified; I10 Essential (primary) hypertension; M19.91 Primary osteoarthritis, unspecified site; F17.200 Nicotine dependence, unspecified, uncomplicated; G25.81 Restless legs syndrome; R32 Unspecified urinary incontinence; S82.853A Displaced trimalleolar fracture of unspecified lower leg, initial encounter for closed fracture; Z90.49 Acquired absence of other specified parts of digestive tract; Z90.710 Acquired absence of both cervix and uterus; Z79.82 Long term (current) use of aspirin; Z79.899 Other long term (current) drug therapy; Z79.51 Long term (current) use of inhaled steroids; Z82.49 Family history of ischemic heart disease and other diseases of the circulatory system
CPT/HCPCS: 80053; 85025; 93005; 93306; 93880; 94640; 96361

== ENCOUNTER 2016-12-04 11:58 | Inpatient (IN) | payer BC, MEDICARE ==
[2016-12-02 14:04] VITALS: BMI 28.3
[~2016-12-04 11:58] MED LIST: LIDOCAINE 1% 20 ML VIAL (10MG/ML) FOR IV START INTRADERMA PRN; ceFAZolin 2 GM in SODIUM CHLORIDE 0.9% 100 ML IVPB ONE
[2016-12-04] MEDS: LACTATED RINGERS 1,000 ML IV SCH (13:22)
[2016-12-04] MEDS ORDERED: ONDANSETRON 4 MG/2 ML VIAL IVP ONE (13:29)
[2016-12-04] MEDS ORDERED: fentaNYL (PF) 50 MCG/ML 2 ML AMP ONE (15:00)
[2016-12-04] MEDS ORDERED: ePHEDrine 50 MG/ML 1 ML AMP ONE (15:00)
[2016-12-04] MEDS ORDERED: PROPOFOL 10 MG/ML 20 ML VIAL IV ONE (15:00)
[2016-12-04] MEDS ORDERED: MIDAZOLAM 2 MG/2 ML VIAL ONE (15:00)
[2016-12-04] MEDS ORDERED: GLYCOPYRROLATE 0.2 MG/ML 2 ML VIAL ONE (15:00)
[2016-12-04] MEDS ORDERED: LACTATED RINGERS 1,000 ML IV ONE (15:44)
[2016-12-04] MEDS ORDERED: ceFAZolin 1,000 MG in SODIUM CHLORIDE 0.9% 1,000 ML IRRIGATION ONE (16:05)
--- NOTE | 2016-12-04 16:53 | FL ---
EXAMINATION TYPE: FL guidance operating room, XR ankle limited 2 views RT DATE OF EXAM: 12/04/2016 4:48 PM COMPARISON: NONE HISTORY: 86 year-old female right ankle ORIF FINDINGS: 2 intraoperative fluoroscopic images demonstrating side plate and multiple screw fixation of the dist al fibula with multiple transsyndesmotic screws as well. FLUOROSCOPY Fluoroscopy time of 31 seconds was used during right ankle ORIF. 2 image/s document/s the procedure. IMPRESSION: Intraoperative fluoroscopy as above.
[2016-12-04] MEDS ORDERED: NALOXONE 0.4 MG/ML 1 ML VIAL IV PRN (17:29)
[2016-12-04] MEDS ORDERED: MAGNESIUM HYDROXIDE 2,400 MG/10 ML CUP PO PRN (17:29)
[2016-12-04] MEDS ORDERED: ONDANSETRON 4 MG/2 ML VIAL IVP PRN (17:29)
[2016-12-04] MEDS ORDERED: MORPHINE SULFATE 2 MG/ML SYRINGE IV PRN ×2 (17:29)
[2016-12-04] MEDS: MORPHINE SULFATE 4 MG/ML SYRINGE IVP ONE ×4 (17:48→18:15)
[2016-12-04 18:07] LABS: Basophils # (A) 0.1 k/uL (0-0.2); Basophils % (A) 1 %; CH 28.8; CHCM 32.8; Eosinophils # (A) 0.1 k/uL (0-0.7); Eosinophils % (A) 1 %; HCT 38.9 % (34.0-46.0); HDW 2.38; HGB 12.8 gm/dL (11.4-16.0); Luc # (Auto) 0.13; Luc % (Auto) 2; Lymphocytes # (A) 1.7 k/uL (1.0-4.8); Lymphocytes % (A) 25 %; MCH 29.1 pg (25.0-35.0); MCHC 32.9 g/dL (31.0-37.0); MCV 88.3 fL (80.0-100.0); Mean Platelet Volume 6.6; Monocytes # (A) 0.3 k/uL (0-1.0); Monocytes % (A) 5 %; Neutrophils # (A) 4.6 k/uL (1.3-7.7); Neutrophils % (A) 67 %; RDW 13.5 % (11.5-15.5); WBC 6.8 k/uL (3.8-10.6); WBC (Perox) 6.96
--- NOTE | 2016-12-04 18:17 | P.OP ---
Date of Procedure: 12/04/16 Preoperative Diagnosis: 1. Closed, right trimalleolar ankle fracture 2. Current every day cigarette smoker 3. COPD 4. Osteoporosis Postoperative Diagnosis: Same Procedure(s) Performed: 1. Open reduction and internal fixation of right trimalleolar ankle fracture ( operative fixation of lateral malleolus fracture, nonoperative management of medial and posterior malleolus fracture) 2. Manual application of stress for radiography by physician, right ankle Anesthesia: spinal Surgeon: Kevin Morales Arts Administrator Or Manager #1: Maddy Rankin Estimated Blood Loss (ml): 25 IV fluids (ml): 600 Pathology: none sent Condition: stable Disposition: PACU Indications for Procedure: The patient is an 86-year-old female who is a current pack-a-day smoker and has COPD who fell several weeks ago and sustained a closed trimalleolar ankle fracture. The patient was seen at [facility] where a closed reduction and splinting was performed in the ER. Surgery was recommended that she decided to transfer back to [place] so she could be closer to home. She was seen as an inpatient consultation at which point she was found to have a closed trimalleolar ankle fracture. She is discharged and followed up with me in the office. We waited an additional week to allow for soft tissue swelling to resolve. I do lengthy discussion with the patient and her daughter on treatment. We discussed that due to the displaced and unstable nature of her ankle fracture it would require surgery to help give her the best chance of regaining her preinjury level of function. I recommended an open reduction and internal fixation of her fracture. We discussed the potential risks and complication of surgery including but not limited to risk of anesthesia, risk of superficial infection, risk of deep infection, risk of delayed wound healing , risk of wound necrosis, risk of fracture nonunion, risk of fracture malunion, risk of failure of hardware, risk of postoperative displacement requiring revision surgery, risk of chronic pain, risk of chronic swelling, risk of posterior medical arthritis, risk of symptomatically hardware, risk of need for further surgery, risk of postoperative medical problems including DVT, PE, pneumonia, urinary tract infection, acute coronary event, stroke, and possibly loss of life or limb. The patient and her daughter voiced their understanding that she is at a much higher risk of having a postoperative complication particularly an infection or wound problem due to her smoking. She was very active prior to her fall and we all felt it was in her best interest undergo surgery. The patient and her daughter signed a consent form identifying her risks for surgery. Description of Procedure: The patient was identified in preoperative holding and the correct right leg was marked with my initials. I reviewed the consent form with the patient her family and all their questions were answered. She was then brought back to the operating room by anesthesia. She was transferred into a seated position and a spinal anesthetic was administered. She was then transferred from the [facility] onto the operating room table. All bony prominences were well-padded. A bone foam ramp was placed under her right buttock internally rotating the leg. A tourniquet was applied to the proximal aspect of the right thigh. The right arm was draped across the body and secured with a pillow. A bone foam ramp was placed under her right leg elevating it. Her left leg was secured to the table with egg foam. Preoperative antibiotics were administered. The right leg was then prepped and draped in standard sterile fashion. Prior to starting surgery timeout was performed identifying the correct patient operative extremity and procedure. The patient's leg was then elevated, exsanguinated with an Esmarch bandage and the tourniquet was inflated to 275 mmHg. A longitudinal incision centered over the fibula was marked out with a skin marker. Skin incision was made with a 15 blade scalpel and dissection was carried down carefully through the subcutaneous tissue with tenotomy scissors. The periosteum overlying the fibula was incised longitudinally in line with the skin incision distally and the fascia was incised longitudinally proximally. The fracture was immediately visible. Consolidating hematoma and early callus was sharply removed. A gentle reduction was performed using longitudinal traction and rotation of the leg followed by clamping of the fracture with a [id number] reduction clamp. There was a large spike of the distal fragment posteriorly that I was able to dsouza in to the more proximal shaft fragment. Once the fracture appeared to be clinically reduced C-arm was brought in to verify the reduction. On the mortise view the fibula appeared to be out to length and the talus was reduced with no widening of the medial clear space. The fracture was a very long oblique fracture with slight comminution proximally. A single 2.7 mm lag screw was placed across the fracture to help generate compression and hold the reduction. A 2.7 mm drill bit was used to create a gliding hole on the anterior cortex of the proximal fragment and a 2.0 mm drill bit was used to create a threaded hole in the posterior cortex of the distal fragment. A fully threaded 2.7 mm screw was placed across the fracture generating excellent compression. I was able to remove the [id number] reduction clamps and the fracture reduction was maintained. I then placed a 12 hole one third tubular plate over the lateral aspect of the fibula. The plate was centered on the lateral aspect of the fibula and its position was assessed using fluoroscopy. Once the plate was positioned in appropriate place a 3.5 mm screw was placed in the fourth hole of the plate just proximal to the fracture bringing it down to bone. I then proceeded to place 3.5 mm cancellus screws in the 11th and 12th hole of the plate securing the plate to bone distally. I then placed 3.5 mm cortical screws in the first and second hole of the plate. Due to the patient's age and poor bone quality I then elected to place several syndesmotic screws to provide improved fixation. Four fully threaded 3.5 syndesmotic screws were placed. C-arm was then brought in to assess reduction position of the hardware. On the mortise view the fibula appeared to be out to length. There was no widening of the medial clear space or incisor. A manual external rotation stress test was performed and showed no widening of the medial clear space or incisor a. A lateral x-ray showed the talus to be centered under the plafond and and hardware in a couple position with all syndesmotic screws within the tibia. Due to the patient's poor soft tissue quality, history of current cigarette smoking, elderly age and no displacement of the medial malleolus fracture on her intraoperative C-arm shots I elected to treat it nonoperatively. I also elected to treat the posterior malleolus fracture nonoperatively due to the small fragment size on preoperative CT and no evidence of posterior subluxation of the talus on the lateral view. At this point the lateral wound was copiously irrigated with sterile saline. The fascia over the fibula was closed with a running 2-0 Vicryl stitch. The deep subcu was reapproximated using 2-0 Vicryl interrupted stitches. The skin was closed with 3-0 nylon Allgower modification of the Donati stitch. The tourniquet was let down with a total tourniquet time of 50 minutes. The skin was cleansed and Brown quarter inch stretchy Steri-Strips were placed between the nylon stitches. I verified that all instrument, sponge, and sharp counts were correct. A sterile dressing consisting of Betadine soaked Adaptic, 4 x 4, and web roll was applied. The drapes were then taken down and a very well- padded bulky Ascencio type splint was applied. The patient was then transferred from the operating room table to the [facility] and brought to PACU having tolerated the procedure well. Plan: The patient is going to be admitted for postoperative pain control, antibiotics, and DVT prophylaxis. Social work and physical therapy have been consulted for discharge planning and mobilization. Internal medicine has been consulted for postoperative medical management. I anticipate the patient will need to be in the hospital at least through the weekend so arrangements can be made for discharge to a short-term nursing facility or rehab unit.
[2016-12-04] MEDS: DIAZEPAM 5 MG TAB PO PRN (18:20)
[2016-12-04] MEDS: MORPHINE SULFATE 2 MG/ML SYRINGE IV PRN (20:05)
[2016-12-04] MEDS: HYDROcodone/APAP 5-325MG 1 EACH TAB PO PRN (21:05)
[2016-12-04] MEDS: CALCIUM CARBONATE 500 MG CHEWABLE PO SCH (21:36)
[2016-12-04] MEDS: SENNOSIDES-DOCUSATE SODIUM 1 EACH TAB PO SCH (21:36)
[2016-12-05] MEDS: MORPHINE SULFATE 2 MG/ML SYRINGE IV PRN ×2 (00:14→07:43)
[2016-12-05] MEDS: ceFAZolin 2 GM in SODIUM CHLORIDE 0.9% 100 ML IVPB SCH ×2 (00:14→07:43)
[2016-12-05] MEDS: LACTATED RINGERS 1,000 ML IV SCH (06:24)
[2016-12-05] MEDS: ENOXAPARIN 30 MG/0.3 ML SYRINGE SQ SCH (07:47)
[2016-12-05] MEDS: CALCIUM CARBONATE 500 MG CHEWABLE PO SCH ×3 (07:48→20:09)
--- NOTE | 2016-12-05 09:38 | P.PN ---
Subjective No acute events overnight. About an hour ago the patient had significant pain in her right ankle that is now better with Dilaudid. The patient denies chest pain or shortness of breath. She has no other complaints. Objective - Vital Signs Vital signs: Vital Signs Temp 97.1 F L 12/05/16 07:00 Pulse 57 L 12/05/16 07:00 Resp 16 12/05/16 07:00 BP 120/59 12/05/16 07:00 Pulse Ox 96 12/05/16 07:00 Intake & Output 12/04/16 12/05/16 12/05/16 18:59 06:59 18:59 Intake Total 1551 Output Total 25 Balance 1526 Intake: IV 1551 Output: Estimated Blood Loss 25 Other: Voiding Method Bedpan # Voids 1 - Exam The patient is alert and oriented and able to answer questions. She demonstrates nonlabored breathing with symmetric chest expansion. A focused exam of the patient's right leg was conducted. On inspection the patient is a clean-appearing bulky Ascencio splint with no drainage. The tips of her toes are warm and well-perfused brisk capillary refill. Sensation is intact to light touch tips of her toes. She has no pain with passive range of motion of her toes. She is able to actively plantarflex and dorsiflex all of her toes. - Labs CBC & Chem 7: 12/04/16 17:48 Assessment and Plan (1) Ankle fracture Status: Acute Plan: Postoperative day #1 status post open reduction and internal fixation of right ankle fracture doing well 1. Strict nonweightbearing right leg. Ice and elevate while in bed. 2. Mobilize out of bed into chair is able. 3. 2 doses postoperative antibiotics. 4. DVT prophylaxis with Lovenox 30 mg daily 2 weeks 5. Calcium carbonate 500 mg daily, vitamin D3 2000 units daily, and awaiting results of 25-hydroxy vitamin D level 6. Internal medicine for perioperative medical management 7. Anticipate discharge to SNF early this week. 8. Transition from IV to oral pain medications. If the patient's pain increases today can consider consult to anesthesia for a popliteal nerve block.
[2016-12-05] MEDS: HYDROcodone/APAP 5-325MG 1 EACH TAB PO PRN ×3 (10:12→22:44)
[2016-12-05] MEDS: KETOROLAC 30 MG/ML 1 ML VIAL IVP PRN ×2 (13:26→20:08)
[2016-12-05] MEDS: MULTIVITAMINS, THERA 1 EACH TAB PO SCH (13:27)
[2016-12-05] MEDS: CHOLECALCIFEROL 1,000 UNIT TAB PO SCH (13:27)
--- NOTE | 2016-12-05 16:12 | CONS ---
DATE OF CONSULTATION: REASON FOR CONSULTATION: Recommendations regarding antihypertensive medications and postoperative complication management and syncope. Patient is a very pleasant 86-year-old female who had syncope recently, was discharged from the hospital recently. Patient had a trimalleolar fracture and patient was sent home and was brought back for internal fixation of the trimalleolar fracture. Patient is postoperative day #1. Patient was having a lot of pain in the right ankle area where she had operative intervention, which has gotten better with morphine, although ( ) are not appropriate for her age. Patient seems to be tolerating that medication. Anyways, I will start her on ketorolac. Patient was extensively evaluated with echocardiogram and recent stress test, all of which were essentially within normal limits. Although I see that patient's pulse is low. She appears to have sinus bradycardia; now her heart rate went up. I believe that sinus bradycardia is during her sleep. The patient is on atenolol. I am going to hold that medication, in spite of atenolol and beta christiane having a beneficial effect to prevent perioperative myocardial infarction ( ) syncope. I will put her on quality assurance monitor body. Patient is also on low dose of losartan. To prevent any perioperative hypotension complications, I will discontinue that as well. Patient did not have any significant seizure-like activity, although patient had a recent syncopal episode. Patient denied any fever or chills. Patient denied any nausea, vomiting, abdominal pain. REVIEW OF SYSTEMS: CONSTITUTIONAL: No fever, no malaise, no fatigue. HEENT: No recent visual problems or hearing problems. Denied any sore throat. CARDIOVASCULAR: As described in HPI. PULMONARY: No shortness of breath, no cough, no hemoptysis. GASTROINTESTINAL: No diarrhea, no nausea, no vomiting, no abdominal pain. Normoactive bowel sounds. NEUROLOGICAL: No headaches, no weakness, no numbness. HEMATOLOGICAL: Denies any bleeding or petechiae. GENITOURINARY: Denies any burning micturition, frequency, or urgency. MUSCULOSKELETAL/RHEUMATOLOGICAL: As described in HPI. ENDOCRINE: Denies any polyuria or polydipsia. The rest of the 14 point review of systems is negative. Past medical history is significant for: 1. Hypertension. 2. COPD. 3. Restless leg syndrome. 4. Cholecystectomy. 5. Hysterectomy. 6. Breast biopsy. SOCIAL HISTORY: Patient continues to smoke 1 pack per day. Denied any alcohol abuse or drug abuse. FAMILY HISTORY: Father had COPD, hyperlipidemia, hypertension, myocardial infarction. Home medications include: 1. Aspirin. 2. Atenolol. 3. Calcium carbonate. 4. Diazepam. 5. Pravastatin. 6. Budesonide/formoterol. 7. Hydrochlorothiazide. 8. Ibuprofen. 9. Losartan. 10. Doxazosin. ALLERGIES: NO KNOWN DRUG ALLERGIES. PHYSICAL EXAMINATION: VITAL SIGNS: Temperature 97.1, pulse of 57, respiratory rate of 16. Blood pressure is 120/59. Saturating at 96% on room air. GENERAL: The patient is alert and oriented x3, not in any acute distress. Well developed, well nourished. HEENT: Pupils are round and equally reacting to light. EOMI. No scleral icterus. No conjunctival pallor. Normocephalic, atraumatic. No pharyngeal erythema. No thyromegaly. CARDIOVASCULAR: S1 and S2 present. No murmurs, rubs, or gallops. PULMONARY: Chest is clear to auscultation, no wheezing or crackles. ABDOMEN: Soft, nontender, nondistended, normoactive bowel sounds. No palpable organomegaly. MUSCULOSKELETAL: Deferred to Orthopedic Surgery. EXTREMITIES: No cyanosis, clubbing, or pedal edema. NEUROLOGICAL: Gross neurological examination did not reveal any focal deficits. SKIN: No rashes. LABORATORY DATA: Her CBC available is essentially within normal limits. Will obtain a basic metabolic profile tomorrow. ASSESSMENT AND PLAN: 1. Trimalleolar fracture, postoperative day #1. Patient is clinically doing well. Pain management as per primary service, but to avoid further narcotic medications, I will start her on ketorolac and Pepcid for GI prophylaxis. Patient is also on a few doses of subtherapeutic morphine, which will be discontinued. 2. Recent syncope with mild bradycardia which appears to be sinus bradycardia. Patient will be started on quality assurance monitor body. Patient was extensively evaluated by Cardiology. All the workup is so far negative and patient was told her heart is okay. 3. Urinary incontinence. 4. Dyslipidemia. 5. Chronic obstructive pulmonary disease without any acute exacerbation. 6. Nicotine abuse. Counseling was provided. 7. Chronic obstructive pulmonary disease. Will continue her home medications.
[2016-12-05] MEDS: ASPIRIN 81 MG CHEW PO SCH (20:09)
[2016-12-05] MEDS: FAMOTIDINE 20 MG TAB PO SCH (20:09)
[2016-12-05] MEDS: PRAVASTATIN SODIUM 40 MG TAB PO SCH (20:09)
[2016-12-05] MEDS: SENNOSIDES-DOCUSATE SODIUM 1 EACH TAB PO SCH (20:12)
[2016-12-06] MEDS: LACTATED RINGERS 1,000 ML IV SCH (05:39)
[2016-12-06] MEDS: KETOROLAC 30 MG/ML 1 ML VIAL IVP PRN ×2 (05:49→11:19)
[2016-12-06 07:44] VITALS: RESP 18
[2016-12-06] MEDS: SYMBICORT 160-4.5 MCG INHALER INHALATION SCH (08:11)
[2016-12-06] MEDS: CALCIUM CARBONATE 500 MG CHEWABLE PO SCH ×3 (08:14→20:52)
[2016-12-06] MEDS: FAMOTIDINE 20 MG TAB PO SCH ×2 (08:14→20:52)
[2016-12-06] MEDS: ENOXAPARIN 30 MG/0.3 ML SYRINGE SQ SCH (08:14)
[2016-12-06 08:59] LABS: Anion Gap 1 mmol/L; Blood Urea Nitrogen 17 mg/dL (7-17); Calcium 8.9 mg/dL (8.4-10.2); Carbon Dioxide 29 mmol/L (22-30); Chloride 92 mmol/L (98-107); Glucose 76 mg/dL (74-99); Non-African American GFR(MDRD) 54 (>60 ml/min/1.73 sqM); Potassium 5.4 mmol/L (3.5-5.1); Sodium 122 mmol/L (137-145)
[2016-12-06] MEDS ORDERED: NON-FORMULARY DRUG (Calcium Carbonate [Calcium] 600 MG) PO SCH (09:00)
[2016-12-06] MEDS ORDERED: SODIUM POLYSTYRENE SULFONATE 15 GM/60 ML BOTTLE PO STA (10:24)
[2016-12-06] MEDS: CHOLECALCIFEROL 1,000 UNIT TAB PO SCH (11:19)
[2016-12-06] MEDS: MULTIVITAMINS, THERA 1 EACH TAB PO SCH (11:19)
--- NOTE | 2016-12-06 12:08 | PN ---
Patient is an 86-year-old admitted for internal fixation of the trimalleolar fracture. Patient is clinically doing well. Pain is better controlled at this point of time. Patient has hyperkalemia secondary to losartan she was receiving at home and also hyponatremic, which was believed secondary to hydrochlorothiazide in the past, although she is not receiving hydrochlorothiazide. I will obtain urine osmolarity and serum osmolarity, urine random sodium and urine random creatinine. After that patient will be started on IV fluids and this is most probably hypovolemic hyponatremia. Will continue to hold the rest of the antihypertensive medications. REVIEW OF SYSTEMS: CARDIOVASCULAR: No chest pain, no orthopnea, no PND, no palpitations. PULMONARY: Denied any shortness of breath. No cough or hemoptysis. GASTROINTESTINAL: No diarrhea, nausea or vomiting. No abdominal pain. Normoactive bowel sounds. NEUROLOGIC: No headaches, no weakness, no numbness. MUSCULOSKELETAL: Some pain in the surgical site area. Medications are reviewed. PHYSICAL EXAMINATION: VITAL SIGNS: Temperature 98.5, pulse of 53, respiratory rate of 18, blood pressure is 136/51, saturating at 94% on 2 L of O2 by nasal cannula. GENERAL: The patient is alert and oriented x3, not in any acute distress. Well developed, well nourished. HEENT: Pupils are round and equally reacting to light. EOMI. No scleral icterus. No conjunctival pallor. Normocephalic, atraumatic. No pharyngeal erythema. No thyromegaly. CARDIOVASCULAR: S1 and S2 present. No murmurs, rubs, or gallops. PULMONARY: Chest is clear to auscultation, no wheezing or crackles. ABDOMEN: Soft, nontender, nondistended, normoactive bowel sounds. No palpable organomegaly. MUSCULOSKELETAL: Defer to orthopedic surgery. EXTREMITIES: No cyanosis, clubbing, or pedal edema. NEUROLOGICAL: Gross neurological examination did not reveal any focal deficits. SKIN: No rashes. LABORATORY DATA: Basic metabolic profile is abnormal for low sodium of 122, potassium 5.4. ASSESSMENT AND PLAN: 1. Trimalleolar fracture, postoperative day 2. Pain management as per primary service. DVT prophylaxis as per primary service. Patient on Lovenox for DVT prophylaxis. 2. Recent syncope with mild bradycardia. Patient continues to have sinus bradycardia. continue to hold atenolol. 3. Hypertension. Patient is actually on hypotensive side. Continue to hold all the antihypertensive medications including losartan because of hyperkalemia. 4. Hyponatremia. Will obtain TSH and above mentioned urine labs. We will start her on 75 mL of normal saline. Will recheck the electrolytes tomorrow. 5. Urinary incontinence. 6. Dyslipidemia. 7. Chronic obstructive pulmonary disease without any acute exacerbation. 8. Continued nicotine use, counseling was provided. For the rest of the mentioned chronic medical problems, I will go ahead and continue her home medications.
--- NOTE | 2016-12-06 12:35 | P.PN ---
Subjective Principal diagnosis: S/P ORIF Right ANkle fracture Patient is POD #2 from ORIF of right ankle fracture per Dr. Morales. She has no new complaints today. Her pain is controlled. She denies new numbness, tingling or calf pain. Review of systems is negative for fever, chills, chest pain, shortness breath, nausea, vomiting, dizziness, headaches, slurred speech or other. Objective - Vital Signs Vital signs: Vital Signs Temp 98.5 F 12/06/16 07:00 Pulse 53 L 12/06/16 07:00 Resp 18 12/06/16 07:00 BP 136/51 12/06/16 07:00 Pulse Ox 94 L 12/06/16 08:10 Intake & Output 12/05/16 12/06/16 12/06/16 18:59 06:59 18:59 Other: # Voids 3 1 3 # Bowel Movements 0 - Exam Inspection of the right lower extremity shows bulky splint intact with Cristhian. There is no evidence of active bleeding or drainage. Neurovascular status is intact distally with less than 2 second cap refill in all digits, positive sensation to light touch and active flexion, extension of all digits. Proximal to the splint is benign as well where she has painless range of motion of the knee and hip. - Constitutional General appearance: Present: no acute distress - Psychiatric Psychiatric: Present: A&O x's 3, appropriate affect, intact judgment & insight - Labs CBC & Chem 7: 12/04/16 17:48 12/06/16 08:02 Labs: Abnormal Lab Results - Last 24 Hours (Table) 12/06/16 12/06/16 Range/Units 08:02 08:02 Sodium 122 L (137-145) mmol/L Potassium 5.4 H (3.5-5.1) mmol/L Chloride 92 L (98-107) mmol/L Osmolality 261 L (280-301) mosm/kg Assessment and Plan (1) Ankle fracture Narrative/Plan: Continue with routine postop orthopedic protocol including pain management, wound care, physical therapy where she is nonweightbearing with right lower extremity, DVT prophylaxis and medical management. Plan is for her to transfer to an extended care facility in the next 1-2 days. Status: Acute Time with Patient: Less than 30
[2016-12-06] MEDS: DIAZEPAM 5 MG TAB PO PRN ×2 (14:07→21:04)
[2016-12-06] MEDS: HYDROcodone/APAP 5-325MG 1 EACH TAB PO PRN ×2 (14:07→21:04)
[2016-12-06] MEDS: SODIUM CHLORIDE 0.9% 1,000 ML IV SCH (15:47)
[2016-12-06 15:55] LABS: Creatinine,Urine Random 121.2 mg/dL
[2016-12-06] MEDS: PRAVASTATIN SODIUM 40 MG TAB PO SCH (20:52)
[2016-12-06] MEDS: ASPIRIN 81 MG CHEW PO SCH (20:52)
[2016-12-06] MEDS: SENNOSIDES-DOCUSATE SODIUM 1 EACH TAB PO SCH (20:52)
[2016-12-07] MEDS: LACTATED RINGERS 1,000 ML IV SCH (05:11)
[2016-12-07] MEDS: FAMOTIDINE 20 MG TAB PO SCH (07:37)
[2016-12-07] MEDS: ENOXAPARIN 30 MG/0.3 ML SYRINGE SQ SCH (07:37)
[2016-12-07] MEDS: CALCIUM CARBONATE 500 MG CHEWABLE PO SCH ×2 (07:37→15:17)
[2016-12-07] MEDS: KETOROLAC 30 MG/ML 1 ML VIAL IVP PRN ×2 (07:39→15:20)
[2016-12-07 07:51] VITALS: BP 164/79; PULSE 77; TEMP 97.3
[2016-12-07] MEDS: SYMBICORT 160-4.5 MCG INHALER INHALATION SCH (08:43)
[2016-12-07] MEDS: HYDROcodone/APAP 5-325MG 1 EACH TAB PO PRN ×2 (09:14→14:24)
[2016-12-07] MEDS: DIAZEPAM 5 MG TAB PO PRN (10:35)
--- NOTE | 2016-12-07 12:10 | P.PN ---
Subjective Principal diagnosis: S/P ORIF Right Ankle fracture Patient is POD #3 from ORIF of right ankle fracture per Dr. Morales. She has no new complaints today. Her pain is controlled. She denies new numbness, tingling or calf pain. Review of systems is negative for fever, chills, chest pain, shortness breath, nausea, vomiting, dizziness, headaches, slurred speech or other. Objective - Vital Signs Vital signs: Vital Signs Temp 97.3 F L 12/07/16 07:00 Pulse 77 12/07/16 07:00 Resp 18 12/07/16 07:00 BP 164/79 12/07/16 07:00 Pulse Ox 93 L 12/07/16 08:44 Intake & Output 12/06/16 12/07/16 12/07/16 18:59 06:59 18:59 Other: Voiding Method Bedside Commode Bedside Commode Bedpan Bedpan # Voids 4 5 - Exam Inspection of the right lower extremity shows bulky splint intact with Cristhian. There is no evidence of active bleeding or drainage. Neurovascular status is intact distally with less than 2 second cap refill in all digits, positive sensation to light touch and active flexion, extension of all digits. Proximal to the splint is benign as well where she has painless range of motion of the knee and hip. - Constitutional General appearance: Present: no acute distress - Psychiatric Psychiatric: Present: A&O x's 3, appropriate affect, intact judgment & insight - Labs CBC & Chem 7: 12/04/16 17:48 12/06/16 08:02 Labs: Abnormal Lab Results - Last 24 Hours (Table) 12/06/16 Range/Units 15:20 Ur Random Sodium 6 L (30-90) mmol/L Assessment and Plan (1) Ankle fracture Narrative/Plan: Continue with routine postop orthopedic protocol including pain management, wound care, physical therapy where she is nonweightbearing with right lower extremity, DVT prophylaxis and medical management. Plan is for her to transfer to an extended care facility in the next 1-2 days. Status: Acute Time with Patient: Less than 30
[2016-12-07 12:36] LABS: Anion Gap 2 mmol/L; Blood Urea Nitrogen 15 mg/dL (7-17); Calcium 8.5 mg/dL (8.4-10.2); Carbon Dioxide 29 mmol/L (22-30); Chloride 96 mmol/L (98-107); Glucose 97 mg/dL (74-99); Non-African American GFR(MDRD) >60 (>60 ml/min/1.73 sqM); Potassium 4.8 mmol/L (3.5-5.1); Sodium 127 mmol/L (137-145)
--- NOTE | 2016-12-07 12:39 | P.DS ---
Providers Date of admission: 12/04/16 11:58 Expected date of discharge: 12/07/16 Attending physician: Kevin Morales Consults: 12/04/16 17:29 Consult Physician Stat Consulting Provider: Randa Uriostegui Consult Reason/Comments: medical management post op Do you want consulting provider notified?: Yes 12/05/16 09:00 Consult Physician Routine Consulting Provider: Ronni Mcdaniel Consult Reason/Comments: medical managment Do you want consulting provider notified?: Already Contacted Primary care physician: Physician Nonstaff - Discharge Diagnosis(es) (1) Ankle fracture Patient was admitted to the OR on 11/26/2016 to undergo ORIF of right trimalleolar ankle fracture per Dr. Morales. Surgical intervention was indicated. Patient understood the possible risks, complications and benefits of surgery and desired to proceed after given informed consent. She underwent the above procedure which she tolerated well without complication. Her postoperative hospital course has remained without complication. On day of discharge she desires to be transferred to an extended standing care facility for further rehabilitation, wound care and medical management. Day of discharge her wound is benign, vital signs stable, labs within acceptable ranges , tolerating by mouth meds and diet well, pain controlled with oral pain medication, voiding without difficulty, passing flatus, denying abdominal pain, denying calf pain, denying numbness or tingling. Her abdomen is soft nontender , calf is soft and nontender, neurovascular status intact with positive sensation throughout the right lower extremity as well as motor at the knee and hip. She has adequate perfusion throughout the lower extremity with less than 2 second cap refill distally. She is able to flex and extend all digits of the right foot. Review of systems is negative for fever, chills, chest pain, shortness breath, nausea, vomiting, dizziness, headaches, rashes, bleeding, slurred speech or other. Current Visit: Yes Status: Acute Priority: Medium Procedures: ORIF right trimalleolar ankle fracture Patient Condition at Discharge: Good Plan - Discharge Summary New Discharge Prescriptions: Enoxaparin [Lovenox] 40 mg SQ DAILY 14 Days HYDROcodone/APAP 5-325MG [[place] 5-325] 1 tab PO Q4HR PRN #60 tab PRN Reason: Pain Discharge Medication List Aspirin EC [Ecotrin Low Dose] 81 mg PO HS 08/27/16 [History] Calcium Carbonate [Calcium] 600 mg PO DAILY 08/27/16 [History] Diazepam [Valium] 5 mg PO TID PRN 08/27/16 [History] Multivitamins, Thera [Multivitamin (formulary)] 1 tab PO DAILY 08/27/16 [History ] Pravastatin Sodium [Pravachol] 40 mg PO HS 08/27/16 [History] Budesonide/Formoterol Fumarate [Symbicort 160-4.5 Mcg Inhaler] 2 puff INHALATION RT-DAILY 11/17/16 [History] Ibuprofen [Motrin] 200 mg PO Q6HR PRN 11/17/16 [History] Tuthill-3 Fatty Acids/Fish Oil [Fish Oil 1,000 mg Softgel] 1 cap PO Q7D 12/02/16 [ History] Enoxaparin [Lovenox] 40 mg SQ DAILY 14 Days 12/07/16 [Rx] HYDROcodone/APAP 5-325MG [[place] 5-325] 1 tab PO Q4HR PRN #60 tab 12/07/16 [Rx] Follow up Appointment(s)/Referral(s): Kevin Morales MD [Medical Doctor] - 2 Weeks Activity/Diet/Wound Care/Special Instructions: 1. Non weight bearing on your operative leg - this means you can't put any weight on your leg. 2. Use crutches, a knee scooter, a walker or a wheel chair to get around. 3. Take pain medications as prescribed. 4. You will need to take an anticoagulant called lovenox for 2 weeks after surgery. 5. Keep your splint clean and dry. Do not remove. Keep your leg elevated as much as possible. 6. Smoking interferes with wound and bone healing. Cutting back your cigarette smoking will help lower the risk of having a complication. 7. Follow-up in the office with Dr. Morales 2 weeks after your surgery, sooner if you think you are having a problem. Discharge Disposition: TRANSFER TO SNF/ECF
[2016-12-07] MEDS: CHOLECALCIFEROL 1,000 UNIT TAB PO SCH (12:41)
[2016-12-07] MEDS: MULTIVITAMINS, THERA 1 EACH TAB PO SCH (12:41)
[2016-12-07] MEDS: SODIUM CHLORIDE 0.9% 1,000 ML IV SCH ×3 (12:41→12:42)
--- NOTE | 2016-12-07 14:15 | PN ---
Patient is an 86-year-old admitted for internal fixation of trimalleolar fracture. Patient has severe hypovolemic hyponatremia from urinary sodium, which is less than 5. Patient's IV fluids will be increased to 125 mL until she is discharged. I did take care of discharge medication reconciliation. I do not have any repeat labs available and awaiting on them. Patient can be discharged from my perspective. I believe her urinary sodium did improve by now and patient will be given on as much fluid resuscitation as possible before discharge and also watch for any pulmonary edema because of her age. Patient from my perspective can be discharged did I did discontinue losartan and atenolol she is on as patient was mildly as patient has sinus bradycardia and hypotension. Blood pressure is a bit elevated. Can be started on amlodipine if needed as an outpatient at a lower dose but for now I will not give her any antihypertensive medications. REVIEW OF SYSTEMS: CARDIOVASCULAR: No chest pain, no orthopnea, no PND, no palpitations. PULMONARY: Denied any shortness of breath. No cough or hemoptysis. GASTROINTESTINAL: No diarrhea, nausea or vomiting. No abdominal pain. Normoactive bowel sounds. NEUROLOGIC: No headaches, no weakness, no numbness. Medications were reviewed. PHYSICAL EXAMINATION: Temperature is 97.7, pulse of 88, respiratory rate of 20, blood pressure 130/79, saturating at 93% on 2 L of O2 nasal cannula. GENERAL: The patient is alert and oriented x3, not in any acute distress. Well developed, well nourished. HEENT: Pupils are round and equally reacting to light. EOMI. No scleral icterus. No conjunctival pallor. Normocephalic, atraumatic. No pharyngeal erythema. No thyromegaly. CARDIOVASCULAR: S1 and S2 present. No murmurs, rubs, or gallops. PULMONARY: Chest is clear to auscultation, no wheezing or crackles. ABDOMEN: Soft, nontender, nondistended, normoactive bowel sounds. No palpable organomegaly. MUSCULOSKELETAL: No joint swelling or deformity. EXTREMITIES: No cyanosis, clubbing, or pedal edema. NEUROLOGICAL: Gross neurological examination did not reveal any focal deficits. SKIN: No rashes. ASSESSMENT AND PLAN: 1. Trimalleolar fracture postoperative day 3. Clinically doing well. 2. Deep venous thrombosis prophylaxis and pain management as per Primary Service. 3. Recent syncope with mild bradycardia. Bradycardia medication management as mentioned above. 4. Hypertension. 5. Hypovolemic hyponatremia. 6. Urinary incontinence. 7. Dyslipidemia. 8. Chronic obstructive pulmonary disease without any acute exacerbation. 9. Nicotine cessation counseling was provided. Patient is okay to be discharged from my perspective. I did take care of medications reconciliation from medicine perspective. Activity as tolerated. Cardiac diet. Follow up with the primary care physician in about a week. RAMBO
--- NOTE | 2016-12-07 14:35 | XR ---
EXAMINATION TYPE: XR chest 1V portable DATE OF EXAM: 12/07/2016 2:31 PM HISTORY: Shortness of breath. COMPARISON: 08/27/2016 TECHNIQUE: Single view of the chest is submitted. FINDINGS: Demonstrated are scattered senescent parenchymal change. There is no evidence for focal infiltrate. The heart is stable. Hilar and mediastinal structures are within normal limits. Degenerative changes are seen of the dorsal spine. IMPRESSION: 1. Chronic changes without evidence for acute pulmonary disease.
[2016-12-08] MEDS ORDERED: ENOXAPARIN 40 MG/0.4 ML SYRINGE SQ SCH (09:00)
[2016-12-08] MEDS ORDERED: FAMOTIDINE 20 MG TAB PO SCH (09:00)
== END 2016-12-07 16:03 | DRG 493 ==
LOC: 2ORMAIN 11:58 → 4MS4W 18:28
PROVIDERS: ADMIT Orthopaedic Surgery; ATTEND Orthopaedic Surgery
PROC: 0QSJ04Z Reposition Right Fibula with Internal Fixation Device, Open Approach (ICD-10-PCS; principal; 2016-12-04 14:00)
PROC: 0QSG04Z Reposition Right Tibia with Internal Fixation Device, Open Approach (ICD-10-PCS; principal; 2016-12-04 14:00)
DX: S82.851A Displaced trimalleolar fracture of right lower leg, initial encounter for closed fracture (principal); E87.1 Hypo-osmolality and hyponatremia; I95.9 Hypotension, unspecified; E87.5 Hyperkalemia; J44.9 Chronic obstructive pulmonary disease, unspecified; E78.5 Hyperlipidemia, unspecified; F17.210 Nicotine dependence, cigarettes, uncomplicated; I10 Essential (primary) hypertension; M81.0 Age-related osteoporosis without current pathological fracture; R32 Unspecified urinary incontinence; W19.XXXA Unspecified fall, initial encounter; Z82.49 Family history of ischemic heart disease and other diseases of the circulatory system
CPT/HCPCS: 71010; 80048; 82306; 82570; 83930; 83935; 84300; 84443; 85025; 86850; 86900; 86901; 94640; 94760

== ENCOUNTER → 2016-12-25 | Outpatient (CLI) | payer BC, MEDICARE ==
--- NOTE | 2016-12-25 14:20 | US ---
EXAMINATION TYPE: US venous doppler duplex LE DATE OF EXAM: 12/25/2016 12:47 PM COMPARISON: NONE CLINICAL HISTORY: M25.571 Pain in R ankle foot. Right calf tenderness SIDE PERFORMED: Bilateral TECHNIQUE: The lower extremity deep venous system is examined utilizing real time linear array sonog srini with graded compression, doppler sonography and color-flow sonography. VESSELS IMAGED: External Iliac Vein (EIV) Common Femoral Vein Deep Femoral Vein Greater Saphenous Vein * Femoral Vein Popliteal Vein Small Saphenous Vein * Proximal Calf Veins (* superficial vessels) Right Leg: Appears negative for DVT Left Leg: Appears negative for DVT IMPRESSION: 1. No deep venous thrombosis bilateral lower extremities.
== END | disposition home or self-care (01) ==
LOC: RADUSWWP 11:59
PROVIDERS: ATTEND Orthopaedic Surgery
DX: M25.571 Pain in right ankle and joints of right foot (principal); R60.0 Localized edema
CPT/HCPCS: 93970

== ENCOUNTER → 2017-03-11 | Outpatient (CLI) | payer MEDICARE ==
--- NOTE | 2017-03-11 23:46 | MR ---
EXAMINATION TYPE: MR brain wo/w con DATE OF EXAM: 03/11/2017 COMPARISON: NONE HISTORY: Syncope, Memory loss TECHNIQUE: Multiplanar, multisequence images of the brain and brainstem is performed without and with IV contras t, utilizing 15 mL intravenous MultiHance . FINDINGS: On the T2 and FLAIR images there is patchy increased signal in the periventricular white matter with numerous foci that measure up to 2 cm. There is no mass effect nor midline shift. There is no sign of intracranial hemorrhage. Brainstem is intact. There is moderate thinning of the corpus callosum. Kelsy la turcica is intact. There is no evidence of acute cortical infarct. There is cerebral cortical atro phy. There is a 1.5 cm area of increased wedge-shaped signal in the inferior left cerebellar hemisphe re consistent with old cortical infarct. IMPRESSION: Cerebral atrophy and extensive white matter changes probably due to chronic small vessel ischemia. No acute intracranial abnormality. 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
== END | disposition home or self-care (01) ==
LOC: RADMRIMAIN 15:48
PROVIDERS: ATTEND Psychiatry & Neurology Neurology
DX: G31.9 Degenerative disease of nervous system, unspecified (principal); R90.82 White matter disease, unspecified; Z86.73 Personal history of transient ischemic attack (TIA), and cerebral infarction without residual deficits
CPT/HCPCS: 70553; A9577